=== PATIENT | female | born 1995 | race Caucasian/White ===

== ENCOUNTER 2016-10-17 09:54 | Emergency (ER) | payer OTHER ==
[2016-10-17] MEDS ORDERED: IOPAMIDOL 370 (76%) 100 ML VIAL IV ONE (09:55)
[2016-10-17 10:48] LABS: ABSOLUTE NEUTROPHIL COUNT 3.8 K/mm3 (1.8-7.7); BASO % 0.1 % (0.2-1.0); EOS % 0.3 % (0.9-2.9); HEMATOCRIT 38.6 % (37.0-47.0); IMM NEUT% 0.3 % (0-1); LYMPH # 2.3 (1.0-4.8); LYMPH % 33.6 % (15-45); MEAN CELL VOLUME 86.5 fl (81.0-99.0); MEAN CORPUSCULAR HEMOGLOBIN 29.1 pg (27.0-31.0); MEAN CORPUSCULAR HGB CONC 33.7 g/dl (33.0-37.0); MEAN PLATELET VOLUME 9.8 fl (7.4-10.4); MONO # 0.7 (0.0-0.8); MONO % 10.2 % (4-12); NEUT % 55.5 % (43-75); PLATELET COUNT 350 K/mm3 (130-400); RED CELL DISTRIBUTION WIDTH 11.7 % (11.5-14.5)
--- NOTE | 2016-10-17 11:08 | CT ---
Exam: CT soft tissue neck with contrast COMPARISON: None INDICATION: Sore throat since last night. Left-sided pain. TECHNIQUE: CT examination of the soft tissues of the neck was obtained following the administration of 80 mL Isovue-370 intravenous contrast. FINDINGS: Mucosal enhancement is seen along the nasopharyngeal tonsils, oropharynx and base of tongue. There is no parapharyngeal edema or prevertebral soft tissue edema. There is no parapharyngeal abscess. Small scattered lymph nodes are seen within both sides of the neck,, right greater than left, and are likely reactive. There is no evidence of suppurative lymphadenopathy. Limited evaluation of the mediastinum demonstrates some soft tissue density within the anterior mediastinum which is without mass effect and likely reflects residual thymic tissue. Mediastinum is otherwise unremarkable. Lung apices are clear. No worrisome osseous abnormality is identified. Visualized intracranial structures are within normal limits. Visualized paranasal sinuses and mastoid air cells are well aerated. IMPRESSION: Mucosal enhancement is seen extending from the nasopharyngeal tonsils and through the base of the tongue, however there is no parapharyngeal edema, parapharyngeal abscess or suppurative lymphadenopathy. Report was uploaded to the EMR at 1104 hours 10/17/2016.
== END 2016-10-17 11:40 | disposition home or self-care (01) ==
LOC: ED 09:54
DX: J02.9 Acute pharyngitis, unspecified (principal); M43.6 Torticollis
CPT/HCPCS: 85025; 80048; 87880; 70491; 99284 ×2; Q9967